=== PATIENT | male | born 1985 | race African-American/Black ===

== ENCOUNTER 2017-02-20 01:14 | Emergency (ER) | payer SELFPAY ==
[~2017-02-20] VITALS: Ht 188 cm; Wt 77.1 kg
[~2017-02-20 01:14] MED LIST: AMOX1TAB11 PO; IBUP-1027 PO
[2017-02-20 01:25] VITALS: BP 130/76
[2017-02-20] MEDS ORDERED: CYCLOBENZAPRINE 10 MG TABLET. PO ONE (02:30)
[2017-02-20] MEDS ORDERED: HYDROmorphone 2 MG/ML VIAL IM ONE (02:30)
[2017-02-20] MEDS ORDERED: MORP15TA PO (02:51)
--- NOTE | 2017-02-20 02:51 | PHYS DOC ---
Past Medical History Past Medical History: No Pertinent History Past Surgical History: No Surgical History Alcohol Use: Occasionally Drug Use: Marijuana Adult General Chief Complaint Chief Complaint: LOWER BACK PAIN OR INJURY HPI HPI 31-year-old male presenting to the emergency department today with lower back pain. He was lifting wood in his backyard earlier when he started having really bad back pain. He describes it as 10 out of 10. He has also been drinking today. The pain is nonradiating severe and without alleviating factors. He denies associated numbness weakness or tingling. He denies perineal paresthesias urinary or fecal incontinence or weakness in his lower extremities. Review of systems is negative for chest pain abdominal pain nausea or vomiting. All other review of systems is negative unless otherwise noted in history of present illness. Review of Systems Review of Systems SEE ABOVE. Current Medications Current Medications Current Medications Medications (Trade) Dose Ordered Sig/Bean Start Time Stop Time Status Last Admin Dose Admin Cyclobenzaprine HCl (Flexeril) 10 mg 1X ONCE 02/20/17 02:30 02/20/17 02:31 DC 02/20/17 02:22 10 MG Hydromorphone HCl (Dilaudid) 0.5 mg 1X ONCE 02/20/17 02:30 02/20/17 02:31 DC 02/20/17 02:23 0.5 MG Allergies Allergies Allergies Coded Allergies Type Severity Reaction Last Updated Verified No Known Drug Allergies 04/28/16 No Physical Exam Physical Exam Constitutional: Well developed, well nourished, no acute distress, non-toxic appearance. [] HENT: Normocephalic, atraumatic, bilateral external ears normal, oropharynx moist, no oral exudates, nose normal. [] Eyes: PERRLA, EOMI, conjunctiva normal, no discharge. [] Neck: Normal range of motion, no tenderness, supple, no stridor. Cardiovascular:Heart rate regular rhythm, no murmur [] Lungs & Thorax: Bilateral breath sounds clear to auscultation [] Abdomen: Bowel sounds normal, soft, no tenderness, no masses, no pulsatile masses. Skin: Warm, dry, no erythema, no rash. [] Back: Mild pain in the paraspinal musculature. no CVA tenderness. [] Extremities: No tenderness, no cyanosis, no clubbing, ROM intact, no edema. [] Neurologic: Alert and oriented X 3, normal motor function, normal sensory function, no focal deficits noted. 5 out of 5 strength in the legs. Psychologic: Affect normal, judgement normal, mood normal. [] Current Patient Data Vital Signs Vital Signs Date Time Temp Pulse Resp B/P (MAP) Pulse Ox O2 Delivery O2 Flow Rate FiO2 02/20/17 01:25 98.1 90 20 100 Room Air 98.1 EKG EKG [] Radiology/Procedures Radiology/Procedures [] Course & Med Decision Making Course & Med Decision Making Pertinent Labs and Imaging studies reviewed. (See chart for details) [] 31-year-old male presenting to the emergency department today with lower back pain. Afebrile. Provided medications for pain in the emergency department which improved his symptoms significantly. The patient was then discharged home in stable condition to follow up with their primary care physician over the next 2-3 days. They were to return if their symptoms worsened or if they were concerned for any reason. [id number] discharge instructions and return precautions were given. Patient's questions were answered to their satisfaction. Patient is comfortable plan. Dragon Disclaimer Dragon Disclaimer This electronic medical record was generated, in whole or in part, using a voice recognition dictation system. Departure Departure Impression: Primary Impression: Lumbar back pain Disposition: HOME, SELF-CARE Condition: STABLE Referrals: NO PCP (PCP) KRISTIN WINTER MD Patient Instructions: Back Exercises, Back Pain, Adult Additional Instructions: Thank you for allowing us to participate in your care today. Followup with your primary care physician in 3 days if your symptoms do not improve. If you do not have a primary care provider you can ask for a list of our primary care providers. Return to the emergency department you have any new or concerning findings. This should be evaluated by the primary care physician and any necessary consulting services for continued management within a few days after discharge. Return to emergency room if you have any new or concerning symptoms including but not limited to fever, chills, nausea, vomiting, intractable pain, any new rashes, chest pain, shortness of air, uncontrolled bleeding, difficulty breathing, and/or vision loss. You may have been prescribed medication that can change in your level of thinking and ability to operate machinery. These medications include hydrocodone and Ativan. Also, Benadryl has been known to do this as well. Be sure to check with your pharmacist and ask if the medications you've prescribed can affect your level of consciousness. I recommend not operating heavy machinery or driving while on medication such as these. Scripts Morphine Sulfate (MORPHINE SULFATE) 15 Mg Tablet 1 TAB PO PRN Q6-8HRS Y for SEVERE PAIN, #8 TAB Prov: ALFA SUAZO MD 02/20/17 ALFA SUAZO MD February 20, 2017 02:51
== END 2017-02-20 03:07 | disposition home or self-care (01) ==
LOC: ER 01:14
DX: M54.5 Low back pain (principal); F12.10 Cannabis abuse, uncomplicated
CPT/HCPCS: 96372; 99283; J1170

== ENCOUNTER 2019-06-03 03:25 | Emergency (ER) | payer SELFPAY ==
[~2019-06-03] VITALS: Ht 177.8 cm; Wt 77.1 kg
[~2019-06-03 03:25] MED LIST changes: +MORP15TA PO
[2019-06-03 03:30] VITALS: BP 154/97
[2019-06-03] MEDS ORDERED: HYDR-3164 PO (03:41)
[2019-06-03] MEDS ORDERED: AMOX1TAB61 PO (03:41)
[2019-06-03] MEDS ORDERED: KETOROLAC 30 MG/ML VIAL. IM ONE (03:45)
--- NOTE | 2019-06-03 03:45 | PHYS DOC ---
Past Medical History Past Medical History: No Pertinent History Past Surgical History: No Surgical History Alcohol Use: Occasionally Drug Use: Marijuana Adult General Chief Complaint Chief Complaint: DENTAL PROBLEM HPI HPI Patient is a 33 year old m with toothache right anterior teeth and right wisdom tooth severe 1000/10 Review of Systems Review of Systems Constitutional: Denies fever or chills [] Current Medications Current Medications Current Medications Medications (Trade) Dose Ordered Sig/Bean Start Time Stop Time Status Last Admin Dose Admin Ketorolac Tromethamine (Toradol 30mg Vial) 30 mg 1X ONCE 06/03/19 03:45 06/03/19 03:46 Allergies Allergies Allergies Coded Allergies Type Severity Reaction Last Updated Verified No Known Drug Allergies 04/28/16 No Physical Exam Physical Exam Constitutional: Well developed, well nourished,mild to moderate distress HENT: Normocephalic, atraumatic, bilateral external ears normal, oropharynx m oist, no oral exudates, nose normal. [] poor dentition cracked tteeth right anterolateral incisor right posterior wisdom teeth mandibular Eyes: PERRLA, EOMI, conjunctiva normal, no discharge. [] Neck: Normal range of motion, no tenderness, supple, no stridor. [] Abdomen: Bowel sounds normal, soft, no tenderness, no masses, no pulsatile masses. [] Skin: Warm, dry, no erythema, no rash. [] Back: No tenderness, no CVA tenderness. [] Extremities: No tenderness, no cyanosis, no clubbing, ROM intact, no edema. [] Current Patient Data Vital Signs Vital Signs Date Time Temp Pulse Resp B/P (MAP) Pulse Ox O2 Delivery O2 Flow Rate FiO2 06/03/19 03:30 98.5 97 20 154/97 (116) 97 Room Air 98.5 EKG EKG [] Radiology/Procedures Radiology/Procedures [] Course & Med Decision Making Course & Med Decision Making Pertinent Labs and Imaging studies reviewed. (See chart for details) []nini Desouza Disclaimer Soumyaon Disclaimer This electronic medical record was generated, in whole or in part, using a voice recognition dictation system. Departure Departure Impression: Primary Impression: Toothache Disposition: HOME, SELF-CARE Condition: STABLE Patient Instructions: Toothache-Brief Scripts Hydrocodone/Apap 5-325 (NORCO 5-325 TABLET) 1 Each Tablet 1-2 EACH PO PRN Q6HRS PRN for PAIN, #15 as needed for pain Prov: STARR BUTLER MD 06/03/19 Amoxicillin/Potassium Clav (AUGMENTIN 875-125 TABLET) 1 Each Tablet 1 TAB PO BID, #20 TAB Prov: STARR BUTLER MD 06/03/19 STARR BUTLER MD Jun 03, 2019 03:45
== END 2019-06-03 03:50 | disposition home or self-care (01) ==
LOC: ER 03:25
DX: K08.89 Other specified disorders of teeth and supporting structures (principal)
CPT/HCPCS: 96372; 99283; J1885

== ENCOUNTER 2019-09-29 11:50 | Emergency (ER) | payer SELFPAY ==
[~2019-09-29] VITALS: Ht 188 cm; Wt 77.1 kg
[~2019-09-29 11:50] MED LIST changes: +AMOX1TAB61 PO; +HYDR-3164 PO
[2019-09-29 12:00] VITALS: BP 144/92
[2019-09-29] MEDS ORDERED: DEXAMETHASONE 4 MG TABLET PO STA (13:03)
[2019-09-29] MEDS ORDERED: DOXY100C2 PO (13:09)
[2019-09-29] MEDS ORDERED: BENZ100C PO (13:09)
--- NOTE | 2019-09-29 13:09 | PHYS DOC ---
Past Medical History Past Medical History: No Pertinent History Past Surgical History: No Surgical History Alcohol Use: Occasionally Drug Use: Marijuana Adult General Chief Complaint Chief Complaint: COUGH HPI HPI Patient is a 34 year old male who presents with cough, ongoing for month. He states he's been running fevers for 2 weeks. Also states he's had mild congestion during this time. Reports it hurts to take a deep breath, and hurts when he coughs and rates his pain is moderate in nature around 5 out of 10 in severity sharp. Review of Systems Review of Systems Constitutional: Reports fever or chills [] Eyes: Denies change in visual acuity, redness, or eye pain [] HENT: Reports nasal congestion and runny nose. Respiratory: Reports cough and shortness of breath [] Cardiovascular: No additional information not addressed in HPI [] GI: Denies abdominal pain, nausea, vomiting, bloody stools or diarrhea [] : Denies dysuria or hematuria [] Musculoskeletal: Denies back pain or joint pain [] Integument: Denies rash or skin lesions [] Neurologic: Denies headache, focal weakness or sensory changes [] Endocrine: Denies polyuria or polydipsia [] Complete systems were reviewed and found to be within normal limits, except as documented in this note. Allergies Allergies Allergies Coded Allergies Type Severity Reaction Last Updated Verified No Known Drug Allergies 04/28/16 No Physical Exam Physical Exam Constitutional: Well developed, well nourished, no acute distress, non-toxic appearance. [] HENT: Normocephalic, atraumatic, bilateral external ears normal, oropharynx m oist, no oral exudates, nose normal. [] Eyes: PERRLA, EOMI, conjunctiva normal, no discharge. [] Neck: Normal range of motion, no tenderness, supple, no stridor. [] Cardiovascular:Heart rate regular rhythm, no murmur [] Lungs & Thorax: Bilateral breath sounds clear to auscultation with exception of right lower base has crackles. Abdomen: Bowel sounds normal, soft, no tenderness, no masses, no pulsatile masses. [] Skin: Warm, dry, no erythema, no rash. [] Back: No tenderness, no CVA tenderness. [] Extremities: No tenderness, no cyanosis, no clubbing, ROM intact, no edema. [] Neurologic: Alert and oriented X 3, normal motor function, normal sensory function, no focal deficits noted. [] Psychologic: Affect normal, judgement normal, mood normal. [] Current Patient Data Vital Signs Vital Signs Date Time Temp Pulse Resp B/P (MAP) Pulse Ox O2 Delivery O2 Flow Rate FiO2 09/29/19 12:00 100.1 109 16 144/92 (109) 99 Room Air 100.1 EKG EKG [] Radiology/Procedures Radiology/Procedures [] Course & Med Decision Making Course & Med Decision Making Pertinent Labs and Imaging studies reviewed. (See chart for details) The patient clinically has pneumonia. Will place on Doxycycline and also give Decadron. Will have follow up with his primary care doctor for follow up. Dragon Disclaimer Dragon Disclaimer This electronic medical record was generated, in whole or in part, using a voice recognition dictation system. Departure Departure Impression: Primary Impression: Pneumonia Disposition: HOME, SELF-CARE Condition: STABLE Referrals: NO PCP (PCP) Patient Instructions: Pneumonia, Adult Additional Instructions: Thank you for visiting [facility]. We appreciate you trusting us with your care. If any additional problems come up don't hesitate to return to visit us. Please follow up with your primary care provider so they can plan additional care if needed and know about the problem that you had. If symptoms worsen come back to the Emergency Department. Any concerning symptoms that start such as chest pain, shortness of air, weakness or numbness on one side of the body, running high fevers or any other concerning symptoms return to the ER. You have been prescribed an antibiotic today to help fight your infection. Please take all of the antibiotic as directed. If after 48 hours the infection is not improving, please return for more care. If the infection worsens, return to ER for additional care. Scripts Benzonatate (TESSALON PERLE) 100 Mg Capsule 100 MG PO TID PRN for COUGH, #21 CAP Prov: KRISTIN GRUBBS APRN 09/29/19 Doxycycline Hyclate (DOXYCYCLINE HYCLATE) 100 Mg Capsule 1 CAP PO BID for 10 Days, #20 CAP Prov: KRISTIN GRUBBS APRN 09/29/19 Problem Qualifiers Primary Impression: Pneumonia Pneumonia type: due to unspecified organism Laterality: right Lung location: lower lobe of lung Qualified Codes: J18.9 - Pneumonia, unspecified organism KRISTIN GRUBBS APRN Sep 29, 2019 13:09
== END 2019-09-29 13:29 | disposition home or self-care (01) ==
LOC: ER 11:50
DX: J18.9 Pneumonia, unspecified organism (principal); R09.89 Other specified symptoms and signs involving the circulatory and respiratory systems; F12.90 Cannabis use, unspecified, uncomplicated
CPT/HCPCS: 99283; J8540

== ENCOUNTER 2019-12-20 10:21 | Emergency (ER) | payer SELFPAY ==
[~2019-12-20] VITALS: Ht 188 cm; Wt 79.5 kg
[~2019-12-20 10:21] MED LIST changes: +BENZ100C PO; +DOXY100C2 PO
[2019-12-20 10:41] VITALS: BP 153/96
[2019-12-20] MEDS ORDERED: PENI500T PO (10:43)
[2019-12-20] MEDS ORDERED: HYDR-3164 PO (10:43)
--- NOTE | 2019-12-20 10:43 | PHYS DOC ---
Past Medical History Past Medical History: No Pertinent History Past Surgical History: No Surgical History Smoking Status: Current Every Day Smoker Alcohol Use: Occasionally Drug Use: Marijuana Adult General Chief Complaint Chief Complaint: DENTAL PROBLEM HPI HPI Patient is a 34 year old male who presents with dental pain x 4 days to upper left canine. He states it is a implant from 17 years ago and has never had any problems with it but now the gum is swollen and painful. He states he has a dental appointment with [facility] in one week. Denies nausea, vomiting, bodyaches, headache, fever. Rates is pain a 10/10. He states he's been taking Tylenol and ibuprofen is not helping the pain. He states yesterday he was the day it actually got really bad. Review of Systems Review of Systems HENT: Denies nasal congestion or sore throat. Left upper dental pain. [] All other systems were reviewed and found to be within normal limits, except as documented in this note. Allergies Allergies Allergies Coded Allergies Type Severity Reaction Last Updated Verified No Known Drug Allergies 04/28/16 No Physical Exam Physical Exam Constitutional: Well developed, well nourished, no acute distress, non-toxic appearance. [] HENT: Normocephalic, atraumatic, bilateral external ears normal, oropharynx moist, no oral exudates, nose normal. Left upper gumline redness and tenderness. [] Eyes: PERRLA, EOMI, conjunctiva normal, no discharge. [] Neck: Normal range of motion, no tenderness, supple, no stridor. [] Cardiovascular:Heart rate regular rhythm, no murmur [] Lungs & Thorax: Bilateral breath sounds clear to auscultation [] Abdomen: Bowel sounds normal, soft, no tenderness, no masses, no pulsatile masses. [] Skin: Warm, dry, no erythema, no rash. [] Back: No tenderness, no CVA tenderness. [] Extremities: No tenderness, no cyanosis, no clubbing, ROM intact, no edema. [] Neurologic: Alert and oriented X 3, normal motor function, normal sensory function, no focal deficits noted. [] Psychologic: Affect normal, judgement normal, mood normal. [] EKG EKG [] Radiology/Procedures Radiology/Procedures [] Course & Med Decision Making Course & Med Decision Making Pertinent Labs and Imaging studies reviewed. (See chart for details) Patient's left upper canine gum line is reddened and swollen and tender to palpation. No facial swelling. Afebrile. The tooth is not broken. Patient has many other missing teeth. Ambulatory steady gait. Speaks in full clear sentenc es. No drainage from the gum line. No abscess is felt with palpation. No facial swelling or tenderness. [] Dragon Disclaimer Dragon Disclaimer This electronic medical record was generated, in whole or in part, using a voice recognition dictation system. Departure Departure Impression: Primary Impression: Pain, dental Disposition: HOME, SELF-CARE Condition: STABLE Referrals: NO PCP (PCP) Patient Instructions: Dental Pain, [id number] Additional Instructions: Follow-up with your dentist as scheduled. Take medication as prescribed. Do not take more Tylenol with this pain medication. He may take Advil or ibuprofen with the pain medication. Scripts Hydrocodone/Apap 5-325 (NORCO 5-325 TABLET) 1 Each Tablet 1 TAB PO PRN Q6HRS PRN for PAIN, #10 TAB 0 Refills Prov: BILL ECHEVERRIA APPARATUS OPERATOR 12/20/19 Penicillin V Potassium (PENICILLIN V POTASSIUM) 500 Mg Tablet 1 TAB PO QID, #40 TAB Prov: BILL ECHEVERRIA APPARATUS OPERATOR 12/20/19 BILL ECHEVERRIA APRN Dec 20, 2019 10:43
[2019-12-21] MEDS ORDERED: CHLO15MO2 SWSP (10:43)
[2019-12-21] MEDS ORDERED: NAPR-514 PO (10:43)
[2019-12-21] MEDS ORDERED: CLIN150C14 PO (10:43)
== END 2019-12-20 10:53 | disposition home or self-care (01) ==
LOC: ER 10:21
DX: K08.89 Other specified disorders of teeth and supporting structures (principal); L53.9 Erythematous condition, unspecified; F17.200 Nicotine dependence, unspecified, uncomplicated; F12.90 Cannabis use, unspecified, uncomplicated
CPT/HCPCS: 99283

== ENCOUNTER 2019-12-21 10:16 | Emergency (ER) | payer SELFPAY ==
[~2019-12-21] VITALS: Ht 188 cm; Wt 79.0 kg
[~2019-12-21 10:16] MED LIST changes: +PENI500T PO
--- NOTE | 2019-12-21 10:35 | PHYS DOC ---
Past Medical History Past Medical History: No Pertinent History Past Surgical History: No Surgical History Smoking Status: Current Every Day Smoker Alcohol Use: Occasionally Drug Use: Marijuana Adult General Chief Complaint Chief Complaint: DENTAL PROBLEM HPI HPI Patient is a 34 year old AA male, accompanied by his significant other, who presents to the emergency department with complaints of left upper dental pain and facial swelling that began yesterday. Patient currently rates his pain a 10 out of 10 on the pain scale. He states that he has taken some leftover penicillin and hydrocodone that was prescribed for a previous dental infection of a different tooth without any improvement in his symptoms. Patient denies any fever, cough, shortness of breath, wheezing, abdominal pain, nausea, vomiting, diarrhea, ear pain, or rash. Review of Systems Review of Systems Complete ROS is negative unless otherwise noted in HPI. Current Medications Current Medications Current Medications Medications (Trade) Dose Ordered Sig/Bean Start Time Stop Time Status Last Admin Dose Admin Acetaminophen/ Hydrocodone Bitart (Lortab 7.5/325) 1 tab 1X ONCE 12/21/19 10:45 12/21/19 10:46 DC 12/21/19 10:45 1 TAB Clindamycin Phosphate 50 ml @ 100 mls/hr 1X ONCE 12/21/19 11:00 12/21/19 11:29 DC 12/21/19 11:52 100 MLS/HR Clindamycin HCl (Cleocin) 450 mg 1X ONCE 12/21/19 10:45 12/21/19 10:46 DC 12/21/19 10:45 450 MG Dexamethasone Sodium Phosphate (Decadron) 10 mg 1X ONCE 12/21/19 11:00 12/21/19 11:02 DC 12/21/19 11:53 10 MG Iohexol (Omnipaque 300 Mg/ml) 75 ml 1X ONCE 12/21/19 13:15 12/21/19 13:16 DC 12/21/19 13:15 75 ML Ketorolac Tromethamine (Toradol 15mg Vial) 15 mg 1X ONCE 12/21/19 11:00 12/21/19 11:02 DC 12/21/19 11:53 15 MG Allergies Allergies Allergies Coded Allergies Type Severity Reaction Last Updated Verified No Known Drug Allergies 04/28/16 No Physical Exam Physical Exam See Above Constitutional: Well developed, well nourished, no acute distress, non-toxic appearance. [] HENT: Normocephalic, atraumatic, bilateral external ears normal, oropharynx moist, no oral exudates, nose normal; multiple dental caries noted in the upper left quadrant with missing teeth and diffuse gingival edema and erythema, consistent with infected dental caries and acute gingivitis. [] Eyes: PERRLA, EOMI, conjunctiva normal, no discharge. [] Neck: Normal range of motion, no stridor. [] Cardiovascular:Heart rate regular rhythm Lungs & Thorax: Respirations even and unlabored, no retractions, no respiratory distress Skin: Warm, dry, no erythema, no rash. [] Extremities: No cyanosis, ROM intact, no edema. [] Neurologic: Alert and oriented X 3, no focal deficits noted. [] Psychologic: Affect normal, judgement normal, mood normal. [] Current Patient Data Vital Signs Vital Signs Date Time Temp Pulse Resp B/P (MAP) Pulse Ox O2 Delivery O2 Flow Rate FiO2 12/21/19 10:30 98.3 98 18 165/103 (123) 100 Room Air 98.3 Lab Values Laboratory Tests Test 12/21/19 11:30 White Blood Count 7.5 x10^3/uL (4.0-11.0) Red Blood Count 4.42 x10^6/uL (4.30-5.70) Hemoglobin 14.7 g/dL (13.0-17.5) Hematocrit 43.1 % (39.0-53.0) Mean Corpuscular Volume 98 fL (79-100) Mean Corpuscular Hemoglobin 33 pg (25-35) Mean Corpuscular Hemoglobin Concent 34 g/dL (31-37) Red Cell Distribution Width 13.5 % (11.5-14.5) Platelet Count 179 x10^3/uL (140-400) Neutrophils (%) (Auto) 69 % (31-73) Lymphocytes (%) (Auto) 19 % (24-48) L Monocytes (%) (Auto) 9 % (0-9) Eosinophils (%) (Auto) 2 % (0-3) Basophils (%) (Auto) 0 % (0-3) Neutrophils # (Auto) 5.2 x10^3/uL (1.8-7.7) Lymphocytes # (Auto) 1.4 x10^3/uL (1.0-4.8) Monocytes # (Auto) 0.7 x10^3/uL (0.0-1.1) Eosinophils # (Auto) 0.2 x10^3/uL (0.0-0.7) Basophils # (Auto) 0.0 x10^3/uL (0.0-0.2) Laboratory Tests 12/21/19 11:30 EKG EKG [] Radiology/Procedures Radiology/Procedures PROCEDURE: CT MAXILLOFACIAL W/CONTRAST CT scan of the facial bones with contrast 12/21/2019 CLINICAL HISTORY: Left facial swelling. TECHNIQUE: After the intravenous administration of 75 cc of Omnipaque 300, contiguous, 0.625 mm axial sections were obtained through the face and orbits. 3 mm reconstructed sagittal, axial and coronal images were obtained. One or more of the following individualized dose reduction techniques were utilized for this study: 1. Automated exposure control. 2. Adjustment of the mA and/or kV according to patient size. 3. Use of iterative reconstruction technique. FINDINGS: The mucosal structures of the nasal pharynx, oral pharynx, hypopharynx and visualized larynx are within normal limits. The visualized parotid glands and submandibular glands are within normal limits. The orbits are within normal limits. Mild mucosal thickening is seen involving the ethmoid air cells bilaterally. Mild mucosal thickening is seen involving the sphenoid sinus. Mild to moderate mucosal thickening is seen involving the maxillary sinuses. A 3.6 cm mucous retention cyst is seen involving the right maxillary sinus. Multiple dental fillings are seen. A large caries is seen involving the right upper first premolar. This measures 6 mm in size. The right upper third molar is fractured at its root. The crown is displaced inferiorly posterior to the right lower second molar. No significant periapical lucency is seen. Soft tissue swelling is seen lateral to the left aspect of the mandible, anteriorly. No abnormal fluid collection is seen. IMPRESSION: Left facial soft tissue swelling. No abscess is seen.[] Course & Med Decision Making Course & Med Decision Making Pertinent Labs and Imaging studies reviewed. (See chart for details) [] Dragon Disclaimer Dragon Disclaimer This electronic medical record was generated, in whole or in part, using a voice recognition dictation system. Departure Departure Impression: Primary Impression: Pain, dental Additional Impressions: Infected dental caries Gingivitis, acute, plaque induced Disposition: HOME, SELF-CARE Condition: STABLE Referrals: NO PCP (PCP) Patient Instructions: Dental Caries, Dental Pain, [id number], Gingivitis, [id number] Additional Instructions: Fill prescription(s) and use as directed. Follow up with dentist using the referral list provided. Return to the ER if symptoms worsen. Scripts Chlorhexidine Gluconate (PERIDEX) 15 Ml Mouthwash 15 ML SWSP BID for 7 Days, #473 ML 0 Refills [place] teeth before using to prevent staining. Swish for approximately 30 seconds before spitting. Prov: KIRSTY ANDERSON APRN 12/21/19 Naproxen (NAPROXEN) 500 Mg Tablet 1 TAB PO BID PRN for PAIN for 10 Days, #20 TAB 0 Refills Prov: KIRSTY ANDERSON APRN 12/21/19 Clindamycin Hcl (CLINDAMYCIN HCL) 150 Mg Capsule 450 MG PO TID for 10 Days, #90 CAP 0 Refills Prov: KIRSTY ANDERSON APRN 12/21/19 Problem Qualifiers KIRSTY ANDERSON APRN Dec 21, 2019 10:35
[2019-12-21] MEDS ORDERED: NAPR-514 PO (10:43)
[2019-12-21] MEDS ORDERED: CHLO15MO2 SWSP (10:43)
[2019-12-21] MEDS ORDERED: CLIN150C14 PO (10:43)
[2019-12-21] MEDS: CLINDAMYCIN HCL 150 MG CAPSULE. PO ONE (10:45)
[2019-12-21] MEDS: HYDROcodone/APAP 7.5/325MG 1 TAB TABLET PO ONE (10:45)
[2019-12-21 11:44] LABS: BASO % 0 % (0-3); EOS # 0.2 x10^3/uL (0.0-0.7); EOS % 2 % (0-3); HEMATOCRIT 43.1 % (39.0-53.0); HEMOGLOBIN 14.7 g/dL (13.0-17.5); LYMPH # 1.4 x10^3/uL (1.0-4.8); LYMPH % 19 % (24-48); MEAN CORPUSCULAR HEMOGLOBIN 33 pg (25-35); MEAN CORPUSCULAR HGB CONC 34 g/dL (31-37); MEAN CORPUSCULAR VOLUME 98 fL (79-100); MONO # 0.7 x10^3/uL (0.0-1.1); MONO % 9 % (0-9); NEUT # 5.2 x10^3/uL (1.8-7.7); NEUT % 69 % (31-73); PLATELET COUNT 179 x10^3/uL (140-400); RED BLOOD COUNT 4.42 x10^6/uL (4.30-5.70); RED CELL DISTRIBUTION WIDTH 13.5 % (11.5-14.5); WHITE BLOOD COUNT 7.5 x10^3/uL (4.0-11.0)
[2019-12-21] MEDS: CLINDAMYCIN 600MG PREMIX 50 ML IV ONE (11:52)
[2019-12-21] MEDS: KETOROLAC 15 MG/ML VIAL. IV ONE (11:53)
[2019-12-21] MEDS: DEXAMETHASONE SOD PHOS 20 MG/5 ML VIAL. IV ONE (11:53)
[2019-12-21] MEDS: IOHEXOL 300 MG/ML 100ML VIAL. IV ONE (13:15)
--- NOTE | 2019-12-21 13:51 | RAD ---
CT scan of the facial bones with contrast 12/21/2019 CLINICAL HISTORY: Left facial swelling. TECHNIQUE: After the intravenous administration of 75 cc of Omnipaque 300, contiguous, 0.625 mm axial sections were obtained through the face and orbits. 3 mm reconstructed sagittal, axial and coronal images were obtained. One or more of the following individualized dose reduction techniques were utilized for this study: 1. Automated exposure control. 2. Adjustment of the mA and/or kV according to patient size. 3. Use of iterative reconstruction technique. FINDINGS: The mucosal structures of the nasal pharynx, oral pharynx, hypopharynx and visualized larynx are within normal limits. The visualized parotid glands and submandibular glands are within normal limits. The orbits are within normal limits. Mild mucosal thickening is seen involving the ethmoid air cells bilaterally. Mild mucosal thickening is seen involving the sphenoid sinus. Mild to moderate mucosal thickening is seen involving the maxillary sinuses. A 3.6 cm mucous retention cyst is seen involving the right maxillary sinus. Multiple dental fillings are seen. A large caries is seen involving the right upper first premolar. This measures 6 mm in size. The right upper third molar is fractured at its root. The crown is displaced inferiorly posterior to the right lower second molar. No significant periapical lucency is seen. Soft tissue swelling is seen lateral to the left aspect of the mandible, anteriorly. No abnormal fluid collection is seen. IMPRESSION: Left facial soft tissue swelling. No abscess is seen. Electronically signed by: Hugo Kolb MD (12/21/2019 1:48 PM) [facility] [place]
[2019-12-21 14:15] VITALS: BP 125/79
== END 2019-12-21 14:23 | disposition home or self-care (01) ==
LOC: ER 10:16
DX: K08.89 Other specified disorders of teeth and supporting structures (principal); K02.9 Dental caries, unspecified; K05.00 Acute gingivitis, plaque induced; F17.200 Nicotine dependence, unspecified, uncomplicated; F12.90 Cannabis use, unspecified, uncomplicated
CPT/HCPCS: 36415; 70487; 85025; 96365; 96375; 99285; J1100; J1885; J3490; Q9967

== ENCOUNTER 2020-03-21 12:49 | Emergency (ER) | payer SELFPAY ==
[~2020-03-21] VITALS: Ht 188 cm; Wt 81.0 kg
[~2020-03-21 12:49] MED LIST changes: +CHLO15MO2 SWSP; +CLIN150C14 PO; +NAPR-514 PO
[2020-03-21 12:55] VITALS: BP 139/96
[2020-03-21] MEDS ORDERED: TETRACAINE 0.5% OPHTH SOLUTION 4ML BOTTLE. OU ONE (13:15)
[2020-03-21] MEDS ORDERED: FLUORESCEIN OPHTH TEST STRIP. OU ONE (13:15)
[2020-03-21] MEDS ORDERED: HYDROcodone/APAP 5/325MG 1 TAB TABLET PO ONE (13:30)
[2020-03-21] MEDS ORDERED: ERYTHROMYCIN 0.5% OPHTH OINTMENT 1GM TUBE. OS ONE (13:30)
--- NOTE | 2020-03-21 13:36 | PHYS DOC ---
Past Medical History Past Medical History: No Pertinent History Past Surgical History: No Surgical History Smoking Status: Current Every Day Smoker Alcohol Use: Heavy Drug Use: Marijuana General Adult EDM: Chief Complaint: EYE PROBLEMS HPI: HPI: Patient is a 34 year old AA male who presents to the emergency department with complaints of pain, redness, and photophobia of his left eye. Patient states that symptoms began 2 days ago. At the time he was opening a champagne bottle and was hit by the cork when the bottle opened in the left eye. Patient states he cannot keep his eye open because of the pain and sensitivity to light. He reports that his vision is blurry in his left eye and that his eye has been tearing. He denies any purulent drainage from the left eye. Patient denies any complaints concerning his right eye. He denies any fever, cough, shortness of breath, abdominal pain, nausea, vomiting, diarrhea, headache, numbness, t ingling, or weakness. He currently rates his pain a 9 out of 10 on the pain scale, he denies any alleviating factors, the pain increases to a 10 out of 10 if he tries to open his eye. Review of Systems: Review of Systems: Constitutional: Denies fever or chills. [] Eyes: See HPI HENT: Denies nasal congestion or sore throat. [] Respiratory: Denies cough or shortness of breath. [] Cardiovascular: Denies chest pain or edema. [] GI: Denies abdominal pain, nausea, vomiting, or diarrhea. [] : Denies dysuria. [] Musculoskeletal: Denies back pain or joint pain. [] Integument: Denies rash. [] Neurologic: Denies headache, focal weakness or sensory changes. [] Psychiatric: Denies depression or anxiety. [] Heart Score: Risk Factors: Risk Factors: DM, Current or recent (<one month) smoker, HTN, HLP, family history of CAD, obesity. Risk Scores: Score 0 - 3: 2.5% MACE over next 6 weeks - Discharge Home Score 4 - 6: 20.3% MACE over next 6 weeks - Admit for Clinical Observation Score 7 - 10: 72.7% MACE over next 6 weeks - Early Invasive Strategies Current Medications: Current Medications Medications (Trade) Dose Ordered Sig/Bean Start Time Stop Time Status Last Admin Dose Admin Fluorescein Sodium (Ful-Juliet) 1 strip 1X ONCE 03/21/20 13:15 03/21/20 13:16 DC 03/21/20 13:16 1 STRIP Tetracaine HCl (Tetracaine) 1 drop 1X ONCE 03/21/20 13:15 03/21/20 13:16 DC 03/21/20 13:16 1 DROP Allergies: Allergies: Allergies Coded Allergies Type Severity Reaction Last Updated Verified No Known Drug Allergies 04/28/16 No Physical Exam: PE: Constitutional: Well developed, well nourished, no acute distress, non-toxic appearance. [] HENT: Normocephalic, atraumatic, bilateral external ears normal, oropharynx moist, no oral exudates, nose normal. [] Eyes: PERRLA, EOMI, right eye conjunctiva normal, no discharge; left eye conjunctive injected [] Neck: Normal range of motion, no stridor. [] Cardiovascular:Heart rate regular rhythm Lungs & Thorax: Respirations even and unlabored, no retractions, no respiratory distress Extremities: No cyanosis, ROM intact Neurologic: Alert and oriented X 3, no focal deficits noted. [] Psychologic: Affect normal, judgement normal, mood normal. [] Current Patient Data: Vital Signs: Vital Signs Date Time Temp Pulse Resp B/P (MAP) Pulse Ox O2 Delivery O2 Flow Rate FiO2 03/21/20 12:55 97.9 99 18 139/96 (110) 98 Room Air 97.9 EKG: EKG: [] Radiology/Procedures: Radiology/Procedures: Using tetracaine and fluroscein the patient's eye was examined under Wood's lamp and an area of uptake at approximately was noted at 6 o'clock over the lower portion of the iris measuring 4 mm x 2 mm Patient's ocular symptoms have stabilized while they have been evaluated in the department and are appropriate for outpatient work up. No evidence of ruptured globe, hyphema, retinal detachment, acute angle closure glaucoma, or deep space infection. Plan for 24 hour ophthalmologic follow up with Dr. Abdi Course & Med Decision Making: Course & Med Decision Making Pertinent Labs and Imaging studies reviewed. (See chart for details) [] Dragon Disclaimer: Dragon Disclaimer: This electronic medical record was generated, in whole or in part, using a voice recognition dictation system. Departure Departure Impression: Primary Impression: Injury of conjunctiva and corneal abrasion of left eye w/o FB Qualified Codes: S05.02XA - Injury of conjunctiva and corneal abrasion without foreign body, left eye, initial encounter Disposition: 01 HOME, SELF-CARE Condition: STABLE Referrals: NO PCP (PCP) Bela VIVAR MD Patient Instructions: Eye - Corneal Abrasion, [id number] Additional Instructions: Fill the prescription(s) and use as directed. Recommend that you wear an eye patch until symptoms approve. Follow up with Dr. Vivar tomorrow for reevaluation of eye. Return to the ER if symptoms worsen. Scripts Hydrocodone Bit/Acetaminophen (HYDROCODONE-APAP 5-325 ) 1 Tab Tablet 1 TAB PO PRN Q6HRS PRN for PAIN for 3 Days, #10 TAB 0 Refills Prov: KIRSTY ANDERSON APRN 03/21/20 Erythromycin Base (Erythromycin) 1 Gm Oint...g. 0.5 INCH OS QID for 5 Days, #1 TUBE 0 Refills Prov: KIRSTY ANDERSON APRN 03/21/20 Justicifation of Admission Dx: Justifications for Admission: Justification of Admission Dx: N/A KIRSTY ANDERSON APRN Mar 21, 2020 13:36
[2020-03-21] MEDS ORDERED: ERYT1OIN6 OS (13:44)
[2020-03-21] MEDS ORDERED: HYDR-2761 PO (13:44)
== END 2020-03-21 13:52 | disposition home or self-care (01) ==
LOC: ER 12:49
DX: S05.02XA Injury of conjunctiva and corneal abrasion without foreign body, left eye, initial encounter (principal); F17.200 Nicotine dependence, unspecified, uncomplicated; F12.90 Cannabis use, unspecified, uncomplicated; F10.10 Alcohol abuse, uncomplicated; W22.8XXA Striking against or struck by other objects, initial encounter; Y93.89 Activity, other specified; Y92.89 Other specified places as the place of occurrence of the external cause; Y99.8 Other external cause status
CPT/HCPCS: 99283

== ENCOUNTER 2020-04-22 12:35 | Emergency (ER) | payer SELFPAY ==
[~2020-04-22] VITALS: Ht 188 cm; Wt 77.0 kg
[~2020-04-22 12:35] MED LIST changes: +ERYT1OIN6 OS; +HYDR-2761 PO
[2020-04-22 16:01] VITALS: BP 141/88
[2020-04-22] MEDS ORDERED: KETOROLAC 60 MG/2 ML VIAL. IM ONE (16:30)
[2020-04-22] MEDS ORDERED: ORPHENADRINE CITRATE 60 MG/2 ML VIAL. IM ONE (16:30)
--- NOTE | 2020-04-22 17:00 | RAD ---
Exam: Lumbar spine 2 views INDICATION: Low back pain for 4 days TECHNIQUE: Frontal and lateral views lumbar spine Comparisons: None FINDINGS: There is mild straightening of the lumbar spine. Vertebral body heights are well-maintained. No significant spondylotic changes lumbar spine. Visualized paraspinal soft tissues are unremarkable. IMPRESSION: Unremarkable lumbar spine are dressed. Electronically signed by: Blas Marie MD (04/22/2020 4:57 PM) [id number]
[2020-04-22] MEDS ORDERED: NAPR-514 PO (17:07)
[2020-04-22] MEDS ORDERED: CYCL10TA2 PO (17:07)
--- NOTE | 2020-04-22 17:07 | PHYS DOC ---
Past Medical History Past Medical History: No Pertinent History Past Surgical History: No Surgical History Smoking Status: Current Every Day Smoker Alcohol Use: Heavy Drug Use: Marijuana General Adult EDM: Chief Complaint: LOWER BACK PAIN OR INJURY HPI: HPI: Patient is a 34 year old AA male who presents to the emergency department with complaints of low back pain that shoots into both of his legs for the last 4 days. He denies any recent injury, heavy lifting, or fall. Patient denies any saddle anesthesia or loss of bowel/bladder control. He denies any dysuria, increased urinary frequency, hematuria, or irregular penile discharge. He currently rates the pain a 10 out of 10 on the pain scale he states the pain is worse if he moves his legs. Patient admits to smoking marijuana prior to arrival and states he got little relief from the marijuana. Review of Systems: Review of Systems: Constitutional: Denies fever or chills. [] GI: Denies abdominal pain, nausea, vomiting : Denies dysuria. [] Musculoskeletal: See HPI Integument: Denies rash. [] Neurologic: Denies headache, focal weakness or sensory changes. [] Psychiatric: Denies depression or anxiety. [] Heart Score: Risk Factors: Risk Factors: DM, Current or recent (<one month) smoker, HTN, HLP, family history of CAD, obesity. Risk Scores: Score 0 - 3: 2.5% MACE over next 6 weeks - Discharge Home Score 4 - 6: 20.3% MACE over next 6 weeks - Admit for Clinical Observation Score 7 - 10: 72.7% MACE over next 6 weeks - Early Invasive Strategies Current Medications: Current Medications Medications (Trade) Dose Ordered Sig/[facility] Start Time Stop Time Status Last Admin Dose Admin Ketorolac Tromethamine (Toradol Im) 30 mg 1X ONCE 04/22/20 16:30 04/22/20 16:31 DC 04/22/20 16:57 30 MG Orphenadrine Citrate (Norflex) 60 mg 1X ONCE 04/22/20 16:30 04/22/20 16:31 DC 04/22/20 16:56 60 MG Allergies: Allergies: Allergies Coded Allergies Type Severity Reaction Last Updated Verified No Known Drug Allergies 04/28/16 No Physical Exam: PE: Constitutional: Well developed, well nourished, no acute distress, non-toxic appearance. [] HENT: Normocephalic, atraumatic, bilateral external ears normal, nose normal. [] Eyes: PERRLA, EOMI, conjunctiva normal, no discharge. [] Neck: Normal range of motion, no stridor. [] Cardiovascular:Heart rate regular rhythm Lungs & Thorax: Respirations even and unlabored, no retractions, no respiratory distress Back: No bony tenderness, left and right paraspinal lumbar tenderness increased pain with bilateral straight leg lift Skin: Warm, dry, no erythema, no rash. [] Extremities: No cyanosis, ROM intact, no edema. [] Neurologic: Alert and oriented X 3, no focal deficits noted. [] Psychologic: Affect normal, judgement normal, mood normal. [] Current Patient Data: Vital Signs: Vital Signs Date Time Temp Pulse Resp B/P (MAP) Pulse Ox O2 Delivery O2 Flow Rate FiO2 04/22/20 16:01 98.3 91 18 141/88 (105) 100 Room Air 98.3 EKG: EKG: [] Radiology/Procedures: Radiology/Procedures: [] Course & Med Decision Making: Course & Med Decision Making Pertinent Labs and Imaging studies reviewed. (See chart for details) [] Dragon Disclaimer: [employer] Disclaimer: This electronic medical record was generated, in whole or in part, using a voice recognition dictation system. Departure Departure Impression: Primary Impression: Low back pain due to bilateral sciatica Disposition: HOME, SELF-CARE Condition: STABLE Referrals: NO PCP (PCP) Patient Instructions: Sciatica, [id number] Additional Instructions: Fill the prescription(s) and use as directed. Apply heat or ice for to sore areas as needed for comfort. Activity as tolerated. Follow up with your primary care doctor this week if symptoms persist, return to the ER if symptoms worsen. Scripts Naproxen (NAPROXEN) 500 Mg Tablet 1 TAB PO BID PRN for PAIN for 10 Days, #20 TAB 0 Refills Prov: KIRSTY ANDERSON APRN 04/22/20 Cyclobenzaprine Hcl (CYCLOBENZAPRINE HCL) 10 Mg Tablet 1 TAB PO TID PRN for PAIN for 10 Days, #30 TAB 0 Refills Prov: KIRSTY ANDERSON APRN 04/22/20 Justicifation of Admission Dx: Justifications for Admission: Justification of Admission Dx: N/A KIRSTY ANDERSON WELFARE OFFICER Apr 22, 2020 17:07
== END 2020-04-22 17:10 | disposition home or self-care (01) ==
LOC: ER 12:35
DX: M54.41 Lumbago with sciatica, right side (principal); M54.42 Lumbago with sciatica, left side; F17.200 Nicotine dependence, unspecified, uncomplicated; F12.90 Cannabis use, unspecified, uncomplicated; F10.10 Alcohol abuse, uncomplicated
CPT/HCPCS: 72100; 96372; 99284; J1885; J2360

== ENCOUNTER 2020-05-17 10:17 | Emergency (ER) | payer SELFPAY ==
[~2020-05-17] VITALS: Ht 188 cm; Wt 77.3 kg
[~2020-05-17 10:17] MED LIST changes: +CYCL10TA2 PO
[2020-05-17 10:22] VITALS: BP 141/88
[2020-05-17] MEDS ORDERED: KETOROLAC 30 MG/ML VIAL. IM ONE (11:00)
--- NOTE | 2020-05-17 11:04 | PHYS DOC ---
Past Medical History Past Medical History: No Pertinent History Past Surgical History: No Surgical History Smoking Status: Current Every Day Smoker Additional Information: 1PPD Alcohol Use: Rarely Drug Use: Marijuana Social History Narrative: 2X /MONTH General Adult EDM: Chief Complaint: UPPER EXTREMITY PAIN HPI: HPI: Patient is a 34 year old male who presents with a chief complaint of right elbow pain. Patient states he was trying to move a window on a car and fell backwards and struck his right elbow. Patient has moderate right elbow pain that is sharp and radiates down the right hand and worse with movement. Patient denies any focal weakness or numbness but has limited range of motion in the right elbow due to pain. Review of Systems: Review of Systems: Constitutional: Denies fever or chills. [] Eyes: Denies change in visual acuity. [] HENT: Denies nasal congestion or sore throat. [] Respiratory: Denies cough or shortness of breath. [] Cardiovascular: Denies chest pain or edema. [] GI: Denies abdominal pain, nausea, vomiting, bloody stools or diarrhea. [] : Denies dysuria. [] Musculoskeletal: Denies back pain but has right elbow pain Integument: Denies rash. [] Neurologic: Denies headache, focal weakness or sensory changes. [] Endocrine: Denies polyuria or polydipsia. [] Lymphatic: Denies swollen glands. [] Psychiatric: Denies depression or anxiety. [] Heart Score: Risk Factors: Risk Factors: DM, Current or recent (<one month) smoker, HTN, HLP, family history of CAD, obesity. Risk Scores: Score 0 - 3: 2.5% MACE over next 6 weeks - Discharge Home Score 4 - 6: 20.3% MACE over next 6 weeks - Admit for Clinical Observation Score 7 - 10: 72.7% MACE over next 6 weeks - Early Invasive Strategies Current Medications: Current Medications Medications (Trade) Dose Ordered Sig/Bean Start Time Stop Time Status Last Admin Dose Admin Ketorolac Tromethamine (Toradol 30mg Vial) 30 mg 1X ONCE 05/17/20 11:00 05/17/20 11:01 DC Allergies: Allergies: Allergies Coded Allergies Type Severity Reaction Last Updated Verified No Known Drug Allergies 04/28/16 No Physical Exam: PE: Constitutional: Well developed, well nourished, no acute distress, non-toxic appearance. [] HENT: Normocephalic, atraumatic, bilateral external ears normal, no trismus nose normal. [] Eyes: PERRLA, EOMI, conjunctiva normal, no discharge. [] Neck: Normal range of motion, no tenderness, supple, no stridor. [] Cardiovascular:Heart rate regular rhythm, peripheral pulses intact, cap refill brisk Lungs & Thorax: Bilateral breath sounds clear, no respiratory distress Abdomen:, soft, no tenderness, no masses, no pulsatile masses. [] Skin: Warm, dry, no erythema, no rash. [] Back: No tenderness, no CVA tenderness. [] Extremities: Right elbow with mild swelling and limited range of motion, neurovascular intact distally Neurologic: Alert and oriented X 3, normal motor function, normal sensory function, no focal deficits noted. [] Psychologic: Affect normal, judgement normal, mood normal. [] Current Patient Data: Vital Signs: Vital Signs Date Time Temp Pulse Resp B/P (MAP) Pulse Ox O2 Delivery O2 Flow Rate FiO2 05/17/20 10:22 98.4 18 141/88 (105) 98 Room Air 98.4 EKG: EKG: [] Radiology/Procedures: Radiology/Procedures: [][facility] [address] [place] [address] IMAGING REPORT Signed PATIENT: CHRISTIANE MAE PACCOUNT: [id number] : 1985 LOCATION: ER AGE: 34 SEX: M EXAM STATUS: PRE ER ORD. PHYSICIAN: WILLARD SARABIA MD REASON: FALL PROCEDURE: ELBOW RIGHT 3V ELBOW RIGHT 3V History: Reason: FALL / Spl. Instructions: / History: . Pain. Technique: 3 views right elbow. Comparison: None. Findings: Acute nondisplaced coronoid process fracture. Moderate elbow joint effusion. Posterior elbow soft tissue swelling. No dislocation. Impression: 1. Acute nondisplaced coronoid process fracture. 2. Moderate elbow joint effusion. Electronically signed by: Quincy Gardner DO (05/17/2020 11:13 AM) [facility] DICTATED and SIGNED BY: QUINCY GARDNER DO DATE: 05/17/20 1113 Course & Med Decision Making: Course & Med Decision Making Pertinent Labs and Imaging studies reviewed. (See chart for details) [] Long-arm posterior splint applied by nursing staff. Examined by me after application, patient neurovascular intact cap refill less than 2 seconds sensation normal. Sling applied by nursing staff 34-year-old male presents with a acute right elbow fracture. Patient has been immobilized. Patient will follow-up with orthopedist. Patient is otherwise stable for discharge and outpatient follow-up. Deo Disclaimer: Dragcharles Disclaimer: This electronic medical record was generated, in whole or in part, using a voice recognition dictation system. Departure Departure Impression: Primary Impression: Elbow fracture, right Disposition: HOME, SELF-CARE Condition: STABLE Referrals: NO PCP (PCP) EDGARDO ONTIVEROS MD 3 DAYS Patient Instructions: Arm Sling Use-Brief, Cast or Splint Care, Elbow Fracture, Simple Additional Instructions: EMERGENCY DEPARTMENT GENERAL DISCHARGE INSTRUCTIONS THANK YOU for coming to [facility] Emergency Department (ED) today and trusting us with your care. We trust that you had a positive experience in our Emergency Department. If you wish to speak to the department Management you can contact the roving department supervisor at . YOUR FOLLOW UP INSTRUCTIONS ARE FOLLOWS: Do you have a private doctor? If you do not have a private doctor, please ask for a resource list of physicians or clinics that may be able to assist you with follow up care. The Emergency Physician has interpreted your x-rays. The X-ray specialist will also review them. If there is a change in the findings you will be notified in 48 hours when at all possible. A lab test or lab culture may have been done, your results will be reviewed and you will be notified if you need a change in treatment. ADDITIONAL INSTRUCTIONS AND INFORMATION Your care today has been supervised by a physician who is specially trained in emergency care. Many problems require more than one evaluation for a complete diagnosis and treatment. We recommend that you schedule your follow up appointment as recommended to ensure complete treatment of your illness or injury. If you are unable to obtain follow up care and continue to have a problem, or if your condition worsens we recommend that you return to the ED. We are not able to safely determine your condition over the phone nor are we able to give sound medical advice over the phone. For these safety reasons, if you call for medical advice we will ask you to come to the ED for further evaluation If you have any questions regarding these discharge instructions please call the ED at . SAFETY INFORMATION In the interest of safety, wellness, and injury prevention; we encourage you to wear your seatbelt, if you smoke; quit smoking, and we encourage your family to use protective helmet for bicycling and other sporting events that present an increased risk for head injury. IF YOUR SYMPTOMS WORSEN OR NEW SYMPTOMS DEVELOP, OR YOU HAVE CONCERNS ABOUT YOUR CONDITION; OR IF YOUR CONDITION WORSENS WHILE YOU ARE WAITING FOR YOUR FOLLOW UP APPOINTMENT; EITHER CONTACT YOUR PRIMARY CARE DOCTOR, THE PHYSICIAN WHOSE NAME AND NUMBER YOU WERE GIVEN, OR RETURN TO THE ED IMMEDIATELY. Scripts Hydrocodone/Apap 5-325 (NORCO 5-325 TABLET) 1 Each Tablet 1-2 EACH PO PRN Q6HRS PRN for PAIN, #15 as needed for pain Prov: WILLARD SARABIA MD 05/17/20 Ibuprofen (IBUPROFEN) 600 Mg Tablet 600 MG PO PRN Q6HRS PRN for INFLAMMATION, #30 TAB Prov: WILLARD SARABIA MD 05/17/20 Justicifation of Admission Dx: Justifications for Admission: Justification of Admission Dx: N/A WILLARD SARABIA MD May 17, 2020 11:04
--- NOTE | 2020-05-17 11:16 | RAD ---
ELBOW RIGHT 3V History: Reason: FALL / Spl. Instructions: / History: . Pain. Technique: 3 views right elbow. Comparison: None. Findings: Acute nondisplaced coronoid process fracture. Moderate elbow joint effusion. Posterior elbow soft tissue swelling. No dislocation. Impression: 1. Acute nondisplaced coronoid process fracture. 2. Moderate elbow joint effusion. Electronically signed by: Quincy Gardner DO (05/17/2020 11:13 AM) [facility]
[2020-05-17] MEDS ORDERED: HYDR-3164 PO (11:27)
[2020-05-17] MEDS ORDERED: IBUP-1007 PO (11:27)
== END 2020-05-17 11:35 | disposition home or self-care (01) ==
LOC: ER 10:17
DX: S52.044A Nondisplaced fracture of coronoid process of right ulna, initial encounter for closed fracture (principal); R60.0 Localized edema; F17.200 Nicotine dependence, unspecified, uncomplicated; F12.90 Cannabis use, unspecified, uncomplicated; W17.89XA Other fall from one level to another, initial encounter; Y93.89 Activity, other specified; Y92.89 Other specified places as the place of occurrence of the external cause; Y99.8 Other external cause status
CPT/HCPCS: 29105; 73080; 96372; 99283; J1885

== ENCOUNTER 2020-10-12 01:48 | Emergency (ER) | payer SELFPAY ==
[~2020-10-12] VITALS: Ht 188 cm; Wt 74.8 kg
[~2020-10-12 01:48] MED LIST changes: -CLIN150C14 PO; +CLIN150C15 PO; +IBUP-1007 PO
[2020-10-12 02:26] VITALS: BP 145/97
--- NOTE | 2020-10-12 07:43 | PHYS DOC ---
Past Medical History Past Medical History: No Pertinent History Past Surgical History: No Surgical History Smoking Status: Current Every Day Smoker Alcohol Use: Rarely Drug Use: Marijuana General Adult EDM: Chief Complaint: MULTIPLE COMPLAINTS HPI: HPI: Patient is a 35 year old male who presented to ER for evaluation of sore throat, body ache, right ear pain for 3 days. Patient denies any fever or chills. Patient had COVID-19 infection in July. Patient denies any headache, no neck stiffness. Patient denies any cough, no trouble breathing, no chest pain, no abdominal pain. Review of Systems: Review of Systems: Constitutional: Denies fever or chills. [] Eyes: Denies change in visual acuity. [] HENT: Positive for nasal congestion or sore throat, right earache Respiratory: Denies cough or shortness of breath. [] Cardiovascular: Denies chest pain or edema. [] GI: Denies abdominal pain, nausea, vomiting, bloody stools or diarrhea. [] : Denies dysuria. [] Musculoskeletal: Denies back pain or joint pain. [] Integument: Denies rash. [] Neurologic: Denies headache, focal weakness or sensory changes. [] Endocrine: Denies polyuria or polydipsia. [] Lymphatic: Denies swollen glands. [] Psychiatric: Denies depression or anxiety. [] Heart Score: Risk Factors: Risk Factors: DM, Current or recent (<one month) smoker, HTN, HLP, family histo ry of CAD, obesity. Risk Scores: Score 0 - 3: 2.5% MACE over next 6 weeks - Discharge Home Score 4 - 6: 20.3% MACE over next 6 weeks - Admit for Clinical Observation Score 7 - 10: 72.7% MACE over next 6 weeks - Early Invasive Strategies Allergies: Allergies: Allergies Coded Allergies Type Severity Reaction Last Updated Verified No Known Drug Allergies 04/28/16 No Physical Exam: PE: Constitutional: Well developed, well nourished, no acute distress, non-toxic appearance. [] HENT: Normocephalic, atraumatic, right external ear canal impacted with wet cerumen, oropharynx moist, erythema, no exudation, no oral exudates, nose normal. [] Eyes: PERRLA, EOMI, conjunctiva normal, no discharge. [] Neck: Normal range of motion, no tenderness, supple, no stridor. [] Cardiovascular:Heart rate regular rhythm, no murmur [] Lungs & Thorax: Bilateral breath sounds clear to auscultation [] Abdomen: Bowel sounds normal, soft, no tenderness, no masses, no pulsatile masses. [] Skin: Warm, dry, no erythema, no rash. [] Back: No tenderness, no CVA tenderness. [] Extremities: No tenderness, no cyanosis, no clubbing, ROM intact, no edema. [] Neurologic: Alert and oriented X 3, normal motor function, normal sensory function, no focal deficits noted. [] Psychologic: Affect normal, judgement normal, mood normal. [] Current Patient Data: Vital Signs: Vital Signs Date Time Temp Pulse Resp B/P (MAP) Pulse Ox O2 Delivery O2 Flow Rate FiO2 10/12/20 02:26 98.8 88 14 145/97 (113) 97 98.8 EKG: EKG: [] Radiology/Procedures: Radiology/Procedures: [] Course & Med Decision Making: Course & Med Decision Making Pertinent Labs and Imaging studies reviewed. (See chart for details) [] Dragon Disclaimer: [place] Disclaimer: This electronic medical record was generated, in whole or in part, using a voice recognition dictation system. Departure Departure Impression: Primary Impression: Acute pharyngitis Disposition: 01 DC HOME SELF CARE/HOMELESS Condition: STABLE Referrals: NO PCP (PCP) FOLLOW UP WITH YOUR DOCTOR NEEDED Patient Instructions: Viral and Bacterial Pharyngitis Additional Instructions: Thank you for visiting our Emergency Department. We appreciate you trusting us with your care. If any additional problems come up don't hesitate to return to visit us. Please follow up with your primary care provider so they can plan additional care if needed and know about the problem that you had. If symptoms worsen come back to the Emergency Department. Any concerning symptoms that start such as chest pain, shortness of air, weakness or numbness on one side of the body, running high fevers or any other concerning symptoms return to the ER. Scripts Amoxicillin (AMOXICILLIN) 500 Mg Capsule 1 CAP PO TID, #30 CAP Prov: INDIA PHIPPS DO 10/12/20 INDIA PHIPPS DO Oct 12, 2020 07:43
[2020-10-12] MEDS ORDERED: AMOX500C PO (07:54)
[2020-10-12] MEDS ORDERED: methylPREDNISolone SOD SUCC PF 125 MG/2 ML VIAL. IM ONE (08:15)
[2020-10-12] MEDS ORDERED: KETOROLAC 60 MG/2 ML VIAL. IM ONE (08:15)
[2020-10-12] MEDS ORDERED: cefTRIAXone IM 1 GM VIAL IM ONE (08:15)
== END 2020-10-12 08:35 | disposition home or self-care (01) ==
LOC: ER 01:48
DX: J02.9 Acute pharyngitis, unspecified (principal); H92.01 Otalgia, right ear; R09.81 Nasal congestion
CPT/HCPCS: 96372; 99284; J0696; J1885; J2930